=== PATIENT | female | born 1940 | race Caucasian/White ===

== ENCOUNTER → 2017-01-29 | Outpatient (CLI) | payer MEDICARE, OTHER | LOC: COL.RAD 08:15 | DX: K80.20 Calculus of gallbladder without cholecystitis without obstruction (principal) ==

== ENCOUNTER 2017-04-09 05:44 | Day surgery (SDC) | payer MEDICARE, OTHER ==
[~2017-04-09] VITALS: Ht 175.3 cm; Wt 78.8 kg
[2017-04-09] MEDS ORDERED: PROCTOCREAM-HC2.5% RC (06:12)
[2017-04-09] MEDS ORDERED: ASPIRIN E.C. 8181 MG PO (06:12)
[2017-04-09] MEDS ORDERED: TUMS500 MG (06:13)
[2017-04-09] MEDS ORDERED: STOOL SOFTENER240 M1 PO (06:13)
[2017-04-09] MEDS ORDERED: GAS-X ULTRA ST180 MG PO (06:14)
[2017-04-09] MEDS ORDERED: FLONASE NASAL S16 GM NS (06:14)
[2017-04-09] MEDS ORDERED: VOLTAREN GEL 1%1 TU TP (06:15)
[2017-04-09] MEDS ORDERED: CLARITIN 1010 MG/TAB PO (06:15)
[2017-04-09 06:31] VITALS: BP 127/65; PULSE 94; TEMP 98.5
[2017-04-09 07:50] VITALS: BP 102/56; PULSE 84; TEMP 97.6
[2017-04-09 08:05] VITALS: BP 118/64; PULSE 82
[2017-04-09 08:20] VITALS: BP 112/52; PULSE 79
[2017-04-09 14:29] VITALS: BP 101/57; PULSE 84
== END 2017-04-09 08:40 | disposition home or self-care (01) ==
LOC: SDCO 05:44
DX: Z12.11 Encounter for screening for malignant neoplasm of colon (principal); D12.5 Benign neoplasm of sigmoid colon; K63.5 Polyp of colon; K21.0 Gastro-esophageal reflux disease with esophagitis; K57.30 Diverticulosis of large intestine without perforation or abscess without bleeding; K44.9 Diaphragmatic hernia without obstruction or gangrene; K29.30 Chronic superficial gastritis without bleeding; K80.20 Calculus of gallbladder without cholecystitis without obstruction; K76.0 Fatty (change of) liver, not elsewhere classified; Z79.82 Long term (current) use of aspirin
CPT/HCPCS: OP; J2250; J2405; J3010; J7030

== ENCOUNTER 2017-04-27 06:28 | Inpatient (IN) | payer MEDICARE, OTHER ==
[~2017-04-27] VITALS: Ht 175.3 cm; Wt 79.1 kg
[2017-04-27] VITALS (9 sets, daily range): BP systolic 105–128; BP diastolic 45–85; PULSE 65–91; TEMP 97.4–97.8
[~2017-04-27 06:28] MED LIST: ASPIRIN E.C. 8181 MG PO; CLARITIN 1010 MG/TAB PO; FLONASE NASAL S16 GM NS; GAS-X ULTRA ST180 MG PO; PROCTOCREAM-HC2.5% RC; STOOL SOFTENER240 M1 PO; TUMS500 MG; VOLTAREN GEL 1%1 TU TP
[2017-04-27 07:17] LABS: BASO # 0.1 (0.0-0.2); BASO % 1.3 % (0.0-2.0); EOS # 0.1 (0.0-0.7); EOS % 1.3 % (0-4.0); GRAN # 3.7 (1.4-6.5); GRAN % 58.4 % (42.2-75.2); HEMATOCRIT 45.4 % (37.0-47.0); HEMOGLOBIN 16.2 g/dl (12.5-16.0); LYMPH # 1.7 (1.2-3.4); LYMPH % 27.1 % (20.0-51.0); MEAN CELL VOLUME 84 fl (80.0-100.0); MEAN CORPUSCULAR HEMOGLOBIN 30 pg (27.0-31.0); MEAN CORPUSCULAR HGB CONC 36 g/dl (33.0-37.0); MEAN PLATELET VOLUME 11.2 fl (7.4-10.4); MONO # 0.7 (0.1-0.6); MONO % 10.6 % (1.7-9.3); PLATELET COUNT 124 K/mm3 (130-400); RED BLOOD COUNT 5.38 M/mm3 (4.10-5.30); REDCELL DISTRIBUTION WIDTH-CV 13.6 % (11.5-14.5)
[2017-04-27] MEDS ORDERED: PRILOSEC 20MG20 MG PO (07:21)
[2017-04-27 07:26] LABS: ALBUMIN 4.4 gm/dL (3.5-5.0); BILIRUBIN,TOTAL 1.1 mg/dL (0.0-1.0); CALCIUM 9.1 mg/dL (8.4-10.2); CREATININE, serum 0.68 mg/dL (0.52-1.25); POTASSIUM 3.1 mmol/L (3.4-5.0)
[2017-04-27 08:02] LABS: ARTERIAL BLD GAS O2 SATURATION 97.4 % (92-100); ARTERIAL BLD GAS TCO2 CT 13.6; ARTERIAL BLOOD GAS BASE EXCESS -10.3 (-2-2); ARTERIAL BLOOD GAS HCO3 12.8 meq/L (22-26); ARTERIAL BLOOD GAS PO2 106.5 mmHg (80-100); ARTERIAL BLOOD GAS pH 7.37 (7.35-7.45)
[2017-04-28] VITALS: BP 114/51; PULSE 89; TEMP 98.3
[2017-04-28 04:07] VITALS: BP 130/52; PULSE 86; TEMP 98
[2017-04-28 05:20] LABS: ARTERIAL BLD GAS O2 SATURATION 96.5 % (92-100); ARTERIAL BLD GAS TCO2 CT 20.2; ARTERIAL BLOOD GAS BASE EXCESS -5.3 (-2-2); ARTERIAL BLOOD GAS HCO3 19.2 meq/L (22-26); ARTERIAL BLOOD GAS PCO2 34.4 mmHg (35-45); ARTERIAL BLOOD GAS PO2 87.2 mmHg (80-100); ARTERIAL BLOOD GAS pH 7.36 (7.35-7.45)
[2017-04-28 06:38] LABS: BASO % 0.2 % (0.0-2.0); GRAN # 12.5 (1.4-6.5); GRAN % 85.3 % (42.2-75.2); HEMATOCRIT 41.1 % (37.0-47.0); HEMOGLOBIN 14.6 g/dl (12.5-16.0); LYMPH # 0.8 (1.2-3.4); LYMPH % 5.2 % (20.0-51.0); MEAN CELL VOLUME 85 fl (80.0-100.0); MEAN CORPUSCULAR HEMOGLOBIN 30 pg (27.0-31.0); MEAN CORPUSCULAR HGB CONC 36 g/dl (33.0-37.0); MEAN PLATELET VOLUME 12.1 fl (7.4-10.4); MONO # 1.3 (0.1-0.6); MONO % 8.6 % (1.7-9.3); RED BLOOD COUNT 4.84 M/mm3 (4.10-5.30); REDCELL DISTRIBUTION WIDTH-CV 14.1 % (11.5-14.5)
[2017-04-28 06:53] LABS: ALBUMIN 4.1 gm/dL (3.5-5.0); BILIRUBIN,TOTAL 0.9 mg/dL (0.0-1.0); CALCIUM 8.8 mg/dL (8.4-10.2); CREATININE, serum 0.69 mg/dL (0.52-1.25); MAGNESIUM 2.5 mg/dL (1.6-2.3); PHOSPHOROUS 1.9 mg/dL (2.5-4.5); TOTAL PROTEIN 7.6 gm/dL (6.4-8.2)
[2017-04-28 07:06] LABS: PLATELET COUNT 224 K/mm3 (130-400)
[2017-04-28 09:49] VITALS: BP 125/45; PULSE 97; TEMP 97.8
[2017-04-28 13:40] VITALS: BP 113/45; PULSE 86; TEMP 97.7
[2017-04-28 17:48] VITALS: BP 148/48; PULSE 94; TEMP 97.4
[2017-04-28 21:33] VITALS: BP 122/50; PULSE 80; TEMP 97.4
[2017-04-29 05:16] VITALS: BP 104/46; PULSE 85; TEMP 97.5
[2017-04-29 06:52] LABS: BASO % 0.3 % (0.0-2.0); EOS % 0.2 % (0-4.0); GRAN # 8.1 (1.4-6.5); GRAN % 76.3 % (42.2-75.2); LYMPH # 1.3 (1.2-3.4); LYMPH % 12.7 % (20.0-51.0); MEAN CELL VOLUME 85 fl (80.0-100.0); MEAN CORPUSCULAR HGB CONC 35 g/dl (33.0-37.0); MEAN PLATELET VOLUME 13.1 fl (7.4-10.4); MONO # 1.1 (0.1-0.6); MONO % 9.9 % (1.7-9.3); PLATELET COUNT 127 K/mm3 (130-400); RED BLOOD COUNT 3.96 M/mm3 (4.10-5.30); REDCELL DISTRIBUTION WIDTH-CV 14.4 % (11.5-14.5)
[2017-04-29 06:59] LABS: ALBUMIN 2.8 gm/dL (3.5-5.0); BILIRUBIN,TOTAL 0.5 mg/dL (0.0-1.0); CALCIUM 8.1 mg/dL (8.4-10.2); CREATININE, serum 0.84 mg/dL (0.52-1.25); PHOSPHOROUS 1.5 mg/dL (2.5-4.5); POTASSIUM 3.2 mmol/L (3.4-5.0)
[2017-04-29 07:00] LABS: HEMATOCRIT 33.6 % (37.0-47.0); HEMOGLOBIN 11.9 g/dl (12.5-16.0); MEAN CORPUSCULAR HEMOGLOBIN 30 pg (27.0-31.0)
[2017-04-29 09:55] VITALS: BP 105/39; PULSE 99; TEMP 89.1
[2017-04-29] MEDS ORDERED: ZANTAC 150MG T150 MG PO (12:19)
[2017-04-29] MEDS ORDERED: PERCOCET 325 MG1 TA2 PO (12:19)
[2017-04-29 13:47] VITALS: BP 101/46; PULSE 102; TEMP 98
[2017-04-29 14:25] LABS: HEMOGLOBIN 11.4 g/dl (12.5-16.0)
[2017-04-29 17:50] VITALS: BP 106/66; PULSE 95; TEMP 98
[2017-04-29 21:56] VITALS: BP 120/50; PULSE 94; TEMP 98.1
[2017-04-30 04:53] VITALS: BP 105/50; PULSE 86; TEMP 97.8
[2017-04-30 06:19] LABS: BASO % 0.5 % (0.0-2.0); EOS % 0.5 % (0-4.0); GRAN # 3.6 (1.4-6.5); LYMPH # 1.8 (1.2-3.4); LYMPH % 28.6 % (20.0-51.0); MEAN CELL VOLUME 86 fl (80.0-100.0); MEAN CORPUSCULAR HGB CONC 34 g/dl (33.0-37.0); MEAN PLATELET VOLUME 13.1 fl (7.4-10.4); MONO # 0.7 (0.1-0.6); MONO % 10.7 % (1.7-9.3); PLATELET COUNT 122 K/mm3 (130-400); RED BLOOD COUNT 3.75 M/mm3 (4.10-5.30); REDCELL DISTRIBUTION WIDTH-CV 15.1 % (11.5-14.5)
[2017-04-30 06:22] LABS: HEMATOCRIT 32.3 % (37.0-47.0); HEMOGLOBIN 11.1 g/dl (12.5-16.0); MEAN CORPUSCULAR HEMOGLOBIN 30 pg (27.0-31.0)
[2017-04-30 06:23] LABS: INR 1.2 (0.8-3.0); PROTHROMBIN TIME 13.4 SECONDS (9.7-12.8)
[2017-04-30 06:34] LABS: ALBUMIN 2.9 gm/dL (3.5-5.0); CALCIUM 7.7 mg/dL (8.4-10.2); CREATININE, serum 0.83 mg/dL (0.52-1.25); PHOSPHOROUS 1.5 mg/dL (2.5-4.5); POTASSIUM 3.4 mmol/L (3.4-5.0)
[2017-04-30 10:24] VITALS: BP 109/47; PULSE 103; TEMP 98.1
[2017-04-30 13:43] VITALS: BP 107/52; PULSE 102; TEMP 97.8
[2017-04-30 18:29] VITALS: BP 116/66; PULSE 96; TEMP 98.2
[2017-04-30 22:00] VITALS: BP 117/55; PULSE 92; TEMP 97.6
[2017-05-01 02:03] VITALS: BP 119/61; PULSE 85; TEMP 97.6
[2017-05-01 05:26] VITALS: BP 113/53; PULSE 89; TEMP 97.9
[2017-05-01 09:14] VITALS: BP 116/57; PULSE 95; TEMP 97.8
[2017-05-01 10:09] LABS: HEMATOCRIT 34.5 % (37.0-47.0); HEMOGLOBIN 11.8 g/dl (12.5-16.0)
[2017-05-01 10:11] LABS: CALCIUM 7.9 mg/dL (8.4-10.2); CREATININE, serum 0.71 mg/dL (0.52-1.25); MAGNESIUM 1.8 mg/dL (1.6-2.3); PHOSPHOROUS 2.7 mg/dL (2.5-4.5); POTASSIUM 4.5 mmol/L (3.4-5.0)
== END 2017-05-01 10:54 | disposition home or self-care (01) | DRG 418 ==
LOC: SURG 06:28 → INPTSU 06:28 → SURG 08:45
PROVIDERS: Surgery
PROC: BF111ZZ Fluoroscopy of Biliary and Pancreatic Ducts using Low Osmolar Contrast (ICD-10-PCS; 2017-04-27)
PROC: 0FT44ZZ Resection of Gallbladder, Percutaneous Endoscopic Approach (ICD-10-PCS; principal; 2017-04-27 08:45)
DX: K80.10 Calculus of gallbladder with chronic cholecystitis without obstruction (principal); E87.2 Acidosis; E46 Unspecified protein-calorie malnutrition; E87.6 Hypokalemia; E83.42 Hypomagnesemia; E83.39 Other disorders of phosphorus metabolism; K21.9 Gastro-esophageal reflux disease without esophagitis; G62.9 Polyneuropathy, unspecified; D64.9 Anemia, unspecified
CPT/HCPCS: 99231-AI; 99232-AI; A9284; J0690; J1100; J1650; J1885; J2175; J2270; J2405; J2704; J2710; J3010; J3475; J7030; J7050; J7120; Q9967

== ENCOUNTER 2018-01-05 10:45 | Inpatient (IN) | payer MEDICARE, OTHER ==
[~2018-01-05] VITALS: Ht 175.3 cm; Wt 84.5 kg
[~2018-01-05 10:45] MED LIST changes: +PERCOCET 325 MG1 TA2 PO; +PRILOSEC 20MG20 MG PO; +ZANTAC 150MG T150 MG PO
[2018-01-05 11:09] LABS: HEMATOCRIT 48.7 % (37.0-47.0); HEMOGLOBIN 16.9 g/dl (12.5-16.0); MEAN CELL VOLUME 88 fl (80.0-100.0); MEAN CORPUSCULAR HEMOGLOBIN 31 pg (27.0-31.0); MEAN CORPUSCULAR HGB CONC 35 g/dl (33.0-37.0); MEAN PLATELET VOLUME 10.6 fl (7.4-10.4); PLATELET COUNT 237 K/mm3 (130-400); RED BLOOD COUNT 5.55 M/mm3 (4.10-5.30); REDCELL DISTRIBUTION WIDTH-CV 12.7 % (11.5-14.5)
[2018-01-05 11:32] LABS: ALBUMIN 4.8 gm/dL (3.5-5.0); BILIRUBIN,TOTAL 3.6 mg/dL (0.0-1.0); CALCIUM 9.6 mg/dL (8.4-10.2); CREATININE, serum 0.77 mg/dL (0.52-1.25); POTASSIUM 3.5 mmol/L (3.4-5.0); TOTAL PROTEIN 8.8 gm/dL (6.4-8.2)
[2018-01-05 11:38] LABS: BAND 30 % (0-10); LYMPHOCYTE 3 % (20.0-51.0); NEUTROPHILS 64 % (42.0-75.2)
[2018-01-05 11:47] LABS: ARTERIAL BLD GAS O2 SATURATION 94.9 % (92-100); ARTERIAL BLD GAS TCO2 CT 24.7; ARTERIAL BLOOD GAS BASE EXCESS -1.8 (-2-2); ARTERIAL BLOOD GAS HCO3 23.4 meq/L (22-26); ARTERIAL BLOOD GAS PCO2 41.3 mmHg (35-45); ARTERIAL BLOOD GAS PO2 78.6 mmHg (80-100); ARTERIAL BLOOD GAS pH 7.37 (7.35-7.45)
[2018-01-05] MEDS ORDERED: MULTIPLE VITAMI1 TA5 PO (13:20)
[2018-01-05 15:45] VITALS: BP 141/62; PULSE 109; TEMP 99.8
[2018-01-05 15:47] VITALS: BP 141/62; PULSE 109; TEMP 99.8
[2018-01-05 17:20] VITALS: BP 133/67; PULSE 107; TEMP 99.2
[2018-01-05 20:15] VITALS: BP 113/57; PULSE 92; TEMP 98.8
[2018-01-06] VITALS: BP 127/72; PULSE 90
[2018-01-06 04:13] VITALS: BP 137/65; PULSE 88
[2018-01-06 05:34] LABS: ARTERIAL BLD GAS TCO2 CT 20.5; ARTERIAL BLOOD GAS BASE EXCESS -4.2 (-2-2); ARTERIAL BLOOD GAS HCO3 19.5 meq/L (22-26); ARTERIAL BLOOD GAS PO2 77.9 mmHg (80-100)
[2018-01-06 06:18] LABS: BASO # 0.1 (0.0-0.2); BASO % 0.4 % (0.0-2.0); EOS % 0.1 % (0-4.0); GRAN % 87.7 % (42.2-75.2); HEMATOCRIT 37.8 % (37.0-47.0); HEMOGLOBIN 13.1 g/dl (12.5-16.0); LYMPH % 6.7 % (20.0-51.0); MEAN CELL VOLUME 89 fl (80.0-100.0); MEAN CORPUSCULAR HEMOGLOBIN 31 pg (27.0-31.0); MEAN CORPUSCULAR HGB CONC 35 g/dl (33.0-37.0); MEAN PLATELET VOLUME 10.7 fl (7.4-10.4); MONO # 0.7 (0.1-0.6); MONO % 4.8 % (1.7-9.3); PLATELET COUNT 138 K/mm3 (130-400); RED BLOOD COUNT 4.25 M/mm3 (4.10-5.30); REDCELL DISTRIBUTION WIDTH-CV 13.3 % (11.5-14.5)
[2018-01-06 06:33] LABS: ALBUMIN 3.3 gm/dL (3.5-5.0); BILIRUBIN,TOTAL 4.1 mg/dL (0.0-1.0); CALCIUM 7.8 mg/dL (8.4-10.2); CHOLESTEROL RISK RATIO 2.7; CREATININE, serum 0.67 mg/dL (0.52-1.25); POTASSIUM 3.5 mmol/L (3.4-5.0); TOTAL PROTEIN 6.4 gm/dL (6.4-8.2)
[2018-01-06 08:00] VITALS: BP 147/72; PULSE 100; TEMP 98.5
[2018-01-06] MEDS ORDERED: CLARITIN 1010 MG/TAB PO (09:42)
[2018-01-06 16:00] VITALS: BP 152/72; PULSE 80; TEMP 97.9
[2018-01-06 21:32] VITALS: BP 129/57; PULSE 80; TEMP 98.8
[2018-01-07] VITALS (7 sets, daily range): BP systolic 130–156; BP diastolic 60–74; PULSE 89–95; TEMP 97.6–99.1
[2018-01-07 06:22] LABS: BASO % 0.2 % (0.0-2.0); EOS % 0.2 % (0-4.0); GRAN # 6.8 (1.4-6.5); LYMPH # 0.9 (1.2-3.4); LYMPH % 10.4 % (20.0-51.0); MEAN CELL VOLUME 91 fl (80.0-100.0); MEAN CORPUSCULAR HGB CONC 34 g/dl (33.0-37.0); MEAN PLATELET VOLUME 11.8 fl (7.4-10.4); MONO # 0.6 (0.1-0.6); MONO % 7.6 % (1.7-9.3); PLATELET COUNT 85 K/mm3 (130-400); RED BLOOD COUNT 3.49 M/mm3 (4.10-5.30); REDCELL DISTRIBUTION WIDTH-CV 13.4 % (11.5-14.5)
[2018-01-07 06:29] LABS: ALBUMIN 2.8 gm/dL (3.5-5.0); BILIRUBIN,TOTAL 3.2 mg/dL (0.0-1.0); CALCIUM 7.8 mg/dL (8.4-10.2); CREATININE, serum 0.61 mg/dL (0.52-1.25); POTASSIUM 3.5 mmol/L (3.4-5.0); TOTAL PROTEIN 5.6 gm/dL (6.4-8.2)
[2018-01-07 06:33] LABS: HEMATOCRIT 31.7 % (37.0-47.0); MEAN CORPUSCULAR HEMOGLOBIN 31 pg (27.0-31.0)
[2018-01-07 06:35] LABS: HEMOGLOBIN 10.7 g/dl (12.5-16.0)
[2018-01-07 06:48] LABS: BILIRUBIN UNCONJUGATED 0.6 mg/dL (0.0-1.1); BILIRUBIN,DIRECT 2.5 mg/dL (0.0-0.4)
[2018-01-07 17:42] LABS: COLLECTION METHOD CLEAN CATCH
[2018-01-07 17:58] LABS: MUCOUS Present /lpf; PH 7 (5-8); SQUAMOUS EPITHELIAL 0-2 /hpf; URINE APPEARANCE Clear; URINE BACTERIA None Seen /hpf; URINE BILIRUBIN Negative (NEGATIVE); URINE BLOOD 1+ (NEGATIVE); URINE COLOR Yellow; URINE GLUCOSE Negative (NEGATIVE); URINE KETONE 1+ (NEGATIVE); URINE LEUKOCYTE ESTERASE Negative (NEGATIVE); URINE NITRATE Negative (NEGATIVE); URINE PROTEIN(semi-quant) Negative (NEGATIVE); URINE UROBILINOGEN >=4.0 mg/dL (NEGATIVE)
[2018-01-08 04:06] VITALS: BP 144/54; PULSE 93; TEMP 98.7
[2018-01-08 07:01] LABS: BASO % 0.2 % (0.0-2.0); EOS # 0.1 (0.0-0.7); EOS % 0.7 % (0-4.0); GRAN # 6.3 (1.4-6.5); GRAN % 74.2 % (42.2-75.2); HEMOGLOBIN 10.7 g/dl (12.5-16.0); LYMPH # 1.3 (1.2-3.4); LYMPH % 15.2 % (20.0-51.0); MEAN CELL VOLUME 89 fl (80.0-100.0); MEAN CORPUSCULAR HEMOGLOBIN 31 pg (27.0-31.0); MEAN CORPUSCULAR HGB CONC 34 g/dl (33.0-37.0); MEAN PLATELET VOLUME 12.3 fl (7.4-10.4); MONO # 0.8 (0.1-0.6); MONO % 9.1 % (1.7-9.3); PLATELET COUNT 91 K/mm3 (130-400); RED BLOOD COUNT 3.48 M/mm3 (4.10-5.30); REDCELL DISTRIBUTION WIDTH-CV 12.9 % (11.5-14.5)
[2018-01-08 07:02] LABS: HEMATOCRIT 31.1 % (37.0-47.0)
[2018-01-08 07:20] LABS: ALBUMIN 2.9 gm/dL (3.5-5.0); BILIRUBIN,TOTAL 1.3 mg/dL (0.0-1.0); CALCIUM 8.1 mg/dL (8.4-10.2); CREATININE, serum 0.54 mg/dL (0.52-1.25); POTASSIUM 3.6 mmol/L (3.4-5.0); TOTAL PROTEIN 5.8 gm/dL (6.4-8.2)
[2018-01-08 07:45] VITALS: BP 121/64; PULSE 108; TEMP 98.4
[2018-01-08 12:53] VITALS: BP 139/70; PULSE 88; TEMP 97.2
[2018-01-08] MEDS ORDERED: ULTRAM 50MG TAB50 MG PO (13:06)
[2018-01-08] MEDS ORDERED: PEPCID 20MG TAB20 MG PO (15:25)
== END 2018-01-08 15:04 | disposition home or self-care (01) | DRG 871 ==
LOC: COL.ER 10:45 → MEDICAL 13:00 → ICU 13:00 → MEDICAL 01-06 20:57 → ICU 01-06 20:57 → MEDICAL 01-06 20:57
PROVIDERS: Family Medicine; Hospitalist; Internal Medicine; Internal Medicine Gastroenterology; Physician Assistant
PROC: BF101ZZ Fluoroscopy of Bile Ducts using Low Osmolar Contrast (ICD-10-PCS; 2018-01-06)
PROC: 0FC98ZZ Extirpation of Matter from Common Bile Duct, Via Natural or Artificial Opening Endoscopic (ICD-10-PCS; principal; 2018-01-06 13:00)
DX: A41.9 Sepsis, unspecified organism (principal); K85.10 Biliary acute pancreatitis without necrosis or infection; R65.20 Severe sepsis without septic shock; K80.50 Calculus of bile duct without cholangitis or cholecystitis without obstruction; K21.9 Gastro-esophageal reflux disease without esophagitis; D69.6 Thrombocytopenia, unspecified; M54.5 Low back pain; G89.29 Other chronic pain; R07.89 Other chest pain; D64.89 Other specified anemias; R53.1 Weakness
CPT/HCPCS: 99223-AI; 99232-AI; 99233-AI; 99239; C1751; C1769; C9113; J1170; J1650; J2405; J2543; J2704; J3010; J7030; J7120; Q9967

== ENCOUNTER 2021-08-01 14:22 | Outpatient (CLI) | payer MEDICARE, OTHER ==
[~2021-08-01 14:22] MED LIST changes: +MULTIPLE VITAMI1 TA5 PO; +PEPCID 20MG TAB20 MG PO; +ULTRAM 50MG TAB50 MG PO
[2021-08-01 15:09] VITALS: BP 123/64; PULSE 89; TEMP 98.8
== END 2021-08-01 16:13 ==
LOC: EUO 14:22
DX: M85.80 Other specified disorders of bone density and structure, unspecified site (principal)
CPT/HCPCS: J3489

== ENCOUNTER 2023-03-04 15:15 | Outpatient (RCR) | payer MEDICARE, OTHER | END 2023-03-10 | disposition home or self-care (01) | LOC: MKS.ESL.PT | DX: M25.511 Pain in right shoulder (principal); M54.50 Low back pain, unspecified; M25.551 Pain in right hip ==

== ENCOUNTER → 2023-04-08 | Outpatient (RCR) | payer MEDICARE, OTHER | END | disposition home or self-care (01) | LOC: MKS.ESL.PT | DX: M25.551 Pain in right hip (principal); M25.511 Pain in right shoulder; M54.50 Low back pain, unspecified ==

== ENCOUNTER 2023-04-15 08:21 | Outpatient (RCR) | payer MEDICARE, OTHER | END 2023-05-09 | disposition home or self-care (01) | LOC: MKS.ESL.PT | DX: M25.511 Pain in right shoulder (principal); M25.551 Pain in right hip; M54.50 Low back pain, unspecified ==